=== PATIENT | male | born 2005 | race Caucasian/White ===

== ENCOUNTER 2024-02-21 08:00 | Inpatient (IN) ==
--- NOTE | 2024-02-21 08:56 | Emergency Department Note ---
Impression & Plan Generalized seizure ED Provider Note NAME: JUANJOSE DEXTER AGE: 18 SEX: M : 2005 ARRIVES VIA: Ambulance INFORMANT: Patient, ED PROVIDER(S): Brian Hines MD CHIEF COMPLAINT: Seizure HPI: This is a 18-year-old male with history of seizure on Keppra and Lamictal presenting for seizure. Patient was noted to have 3 seizures this morning and fell out of bed. 1 seizure was witnessed by EMS. He was given 2 L of Ativan IV with a seizure by EMS. Patient states he does not remember much he did states he felt unwell today. Constantly where he was, what happened. Does not member his last seizure, he thinks it may have been in October. Patient is currently postictal ROS: See above HPI for pertinent positives & negatives. A total of 10 systems reviewed and were otherwise negative. PHYSICAL EXAMINATION: General: resting comfortably in no acute distress Head: Normocephalic, mild swelling to the left forehead Eyes: Normal inspection, extraocular muscles intact Ear, nose, throat: Normal external exam Neck: Normal range of motion Respiratory: lungs clear to auscultation bilaterally Cardiovascular: Regular rate/rhythm, no murmur GI: soft, nontender, no guarding or rebound Extremities: nontender, moves all extremities Neuro: The patient awake and alert, somewhat confused but answers all questions appropriately, no focal deficits, symmetric faces Skin: Warm, dry, and intact MEDICAL DECISION MAKING: This is a 18-year-old male presenting for seizure. Patient is a known history of seizures last seizure was in October. Takes Keppra/Lamictal. Possibly had up to 3 seizures prior to arrival here. He is postictal at this time we will do head CT to rule out traumatic injury as he does have mild swelling to the left forehead. -CT imaging reveals no acute process. Patient observed for about 3+ hours at this time and is returned to his baseline. He appears to answer questioning appropriately at this time. Medically clear for discharge. -If short while later, parents did come from [place] and noted the patient was not at his usual baseline. Due to his postictal period lasting longer, will do blood work at this time and observe slightly longer. Will cancel discharge at this time. also they mention the patient has had vomiting throughout the course of the night and likely vomited up his medication was last night and did not take any medication this morning. Due to this we will give Keppra load as well as Lamictal p.o. -I was called to bedside as patient is having active seizure. Patient did have a seizure tonic-clonic like activity shortly after was last about 2 to 2-1/2 minutes. Dry heaving without vomiting. Maintaining airway at this time. Abated quickly after 2 mg of Ativan was administered IV. -The patient now has had approximately 4 seizures today. Patient will require admission for status epilepticus. -Currently resting comfortably, no longer having seizure-like activity is postictal but otherwise somewhat tachycardic. Differential diagnosis: Seizure, status epilepticus, intracranial hemorrhage ER treatment provided: See below Diagnostics interpreted by me: ECG: None Cardiac Monitoring: An order was placed for continuous cardiac monitoring. The monitor shows a rate of 116 with sinus rhythm. Laboratory studies: As stated above and show below. Imaging studies: See below. Critical Care Note: I have personally spent 30 minutes of critical care time in the direct management of this patient. This includes bedside care, interpretation of diagnostic studies, and testing, discussion with consultants, patient, and family members, and other required patient management activities. This 30 minutes is in excess of all separately billable procedures. Past Med/Surg History Social History Smoking Status: Never smoker Preferred Language: Arabic Feels Safe at Home: Yes Allergies Allergies Allergy/AdvReac Type Severity Reaction Status Date / Time No Known Allergies Allergy Verified 02/21/24 09:38 Home Meds Home Medications Medication Instructions Recorded Confirmed lamotrigine 100 mg tablet 250 mg PO QAM 09/02/22 02/21/24 (Lamictal) levetiracetam 500 mg tablet 1,000 mg PO QAM 09/02/22 02/21/24 (Keppra) lamotrigine 150 mg tablet 300 mg PO QPM 02/21/24 02/21/24 levetiracetam 500 mg tablet 1,500 mg PO QPM 02/21/24 02/21/24 methylphenidate HCl 36 mg 36 mg PO DAILY 02/21/24 02/21/24 tablet,extended release 24 hr Results & Data (ED) Vital Signs Vital Signs - 24 hr 02/21/24 08:10 02/21/24 08:12 02/21/24 08:15 Temperature 37.0 C Temperature Source Oral Pulse Rate 111 H 115 H 110 H Pulse Rate [Apical] Pulse Rate from SpO2 Sensor 115 H Pulse Rhythm Regular Pulse Rhythm [Apical] Pulse Strength Normal Pulse Strength [Apical] Respiratory Rate 17 20 Respiratory Effort / Characteristics Non-Labored Spontaneous Respiratory Depth Normal Respiratory Pattern Regular Blood Pressure 126/74 126/74 Blood Pressure [Right Arm] Blood Pressure Mean 91 91 Blood Pressure Mean [Right Arm] Blood Pressure Position Sitting Blood Pressure Position [Right Arm] Pulse Oximetry 97 95 Oxygen Delivery Method Room Air Room Air Sepsis Recent Fever Within 48 Hours No Sepsis New/Unexplained Change in Mental Status No Sepsis Action Taken by Nursing No Action Required End-Tidal CO2 02/21/24 08:20 02/21/24 08:20 02/21/24 08:30 Temperature 37.0 C Temperature Source Oral Pulse Rate 100 H Pulse Rate [Apical] 105 H Pulse Rate from SpO2 Sensor 100 H Pulse Rhythm Pulse Rhythm [Apical] Regular Pulse Strength Pulse Strength [Apical] Normal Respiratory Rate 17 19 Respiratory Effort / Characteristics Non-Labored Spontaneous Respiratory Depth Normal Respiratory Pattern Regular Blood Pressure 114/63 Blood Pressure [Right Arm] 126/74 Blood Pressure Mean 80 Blood Pressure Mean [Right Arm] 91 Blood Pressure Position Blood Pressure Position [Right Arm] Pulse Oximetry 93 93 93 Oxygen Delivery Method Room Air Room Air Room Air Sepsis Recent Fever Within 48 Hours Sepsis New/Unexplained Change in Mental Status Sepsis Action Taken by Nursing End-Tidal CO2 02/21/24 09:00 02/21/24 09:09 02/21/24 09:22 Temperature Temperature Source Pulse Rate 102 H 95 H Pulse Rate [Apical] Pulse Rate from SpO2 Sensor Pulse Rhythm Pulse Rhythm [Apical] Pulse Strength Pulse Strength [Apical] Respiratory Rate 19 Respiratory Effort / Characteristics Respiratory Depth Respiratory Pattern Blood Pressure 124/69 124/69 Blood Pressure [Right Arm] Blood Pressure Mean 87 94 Blood Pressure Mean [Right Arm] Blood Pressure Position Blood Pressure Position [Right Arm] Pulse Oximetry 94 Oxygen Delivery Method Room Air Sepsis Recent Fever Within 48 Hours Sepsis New/Unexplained Change in Mental Status Sepsis Action Taken by Nursing End-Tidal CO2 02/21/24 09:22 02/21/24 09:30 02/21/24 09:30 Temperature Temperature Source Pulse Rate 95 H 88 Pulse Rate [Apical] Pulse Rate from SpO2 Sensor Pulse Rhythm Pulse Rhythm [Apical] Pulse Strength Pulse Strength [Apical] Respiratory Rate 15 17 Respiratory Effort / Characteristics Respiratory Depth Respiratory Pattern Blood Pressure 119/71 Blood Pressure [Right Arm] Blood Pressure Mean 91 Blood Pressure Mean [Right Arm] Blood Pressure Position Blood Pressure Position [Right Arm] Pulse Oximetry Oxygen Delivery Method Sepsis Recent Fever Within 48 Hours Sepsis New/Unexplained Change in Mental Status Sepsis Action Taken by Nursing End-Tidal CO2 02/21/24 10:00 02/21/24 10:00 02/21/24 10:20 Temperature Temperature Source Pulse Rate 83 Pulse Rate [Apical] 97 H Pulse Rate from SpO2 Sensor Pulse Rhythm Pulse Rhythm [Apical] Regular Pulse Strength Pulse Strength [Apical] Normal Respiratory Rate 13 18 Respiratory Effort / Characteristics Non-Labored Spontaneous Respiratory Depth Normal Respiratory Pattern Regular Blood Pressure 124/63 Blood Pressure [Right Arm] 126/77 Blood Pressure Mean 87 Blood Pressure Mean [Right Arm] 93 Blood Pressure Position Blood Pressure Position [Right Arm] Pulse Oximetry 97 Oxygen Delivery Method Room Air Sepsis Recent Fever Within 48 Hours Sepsis New/Unexplained Change in Mental Status Sepsis Action Taken by Nursing End-Tidal CO2 02/21/24 10:30 02/21/24 10:30 02/21/24 10:39 Temperature Temperature Source Pulse Rate 99 H 95 H Pulse Rate [Apical] Pulse Rate from SpO2 Sensor Pulse Rhythm Pulse Rhythm [Apical] Pulse Strength Pulse Strength [Apical] Respiratory Rate 21 20 Respiratory Effort / Characteristics Respiratory Depth Respiratory Pattern Blood Pressure 127/86 Blood Pressure [Right Arm] Blood Pressure Mean 103 Blood Pressure Mean [Right Arm] Blood Pressure Position Blood Pressure Position [Right Arm] Pulse Oximetry Oxygen Delivery Method Sepsis Recent Fever Within 48 Hours Sepsis New/Unexplained Change in Mental Status Sepsis Action Taken by Nursing End-Tidal CO2 02/21/24 10:39 02/21/24 10:57 02/21/24 12:09 Temperature Temperature Source Pulse Rate 96 H Pulse Rate [Apical] Pulse Rate from SpO2 Sensor 145 H Pulse Rhythm Pulse Rhythm [Apical] Pulse Strength Pulse Strength [Apical] Respiratory Rate 18 Respiratory Effort / Characteristics Respiratory Depth Respiratory Pattern Blood Pressure 126/77 126/72 Blood Pressure [Right Arm] Blood Pressure Mean 94 Blood Pressure Mean [Right Arm] Blood Pressure Position Blood Pressure Position [Right Arm] Pulse Oximetry 98 89 L Oxygen Delivery Method Room Air Sepsis Recent Fever Within 48 Hours Sepsis New/Unexplained Change in Mental Status Sepsis Action Taken by Nursing End-Tidal CO2 02/21/24 12:10 02/21/24 12:10 02/21/24 12:15 Temperature Temperature Source Pulse Rate 128 H Pulse Rate [Apical] 133 H Pulse Rate from SpO2 Sensor 126 H Pulse Rhythm Pulse Rhythm [Apical] Regular Pulse Strength Pulse Strength [Apical] Normal Respiratory Rate 29 H 10 L Respiratory Effort / Characteristics Spontaneous Respiratory Depth Respiratory Pattern Blood Pressure 156/86 H Blood Pressure [Right Arm] 156/86 H Blood Pressure Mean 122 Blood Pressure Mean [Right Arm] 109 Blood Pressure Position Blood Pressure Position [Right Arm] Pulse Oximetry 93 92 Oxygen Delivery Method Room Air Sepsis Recent Fever Within 48 Hours Sepsis New/Unexplained Change in Mental Status Sepsis Action Taken by Nursing End-Tidal CO2 02/21/24 12:30 02/21/24 12:52 02/21/24 13:00 Temperature Temperature Source Pulse Rate 128 H 119 H Pulse Rate [Apical] 120 H Pulse Rate from SpO2 Sensor 128 H 120 H Pulse Rhythm Pulse Rhythm [Apical] Regular Pulse Strength Pulse Strength [Apical] Normal Respiratory Rate 27 H 18 24 Respiratory Effort / Characteristics Non-Labored Spontaneous Respiratory Depth Normal Respiratory Pattern Regular Blood Pressure Blood Pressure [Right Arm] 156/86 H Blood Pressure Mean Blood Pressure Mean [Right Arm] 109 Blood Pressure Position Blood Pressure Position [Right Arm] Pulse Oximetry 94 91 91 Oxygen Delivery Method Room Air Sepsis Recent Fever Within 48 Hours Sepsis New/Unexplained Change in Mental Status Sepsis Action Taken by Nursing End-Tidal CO2 37 02/21/24 13:02 02/21/24 13:30 02/21/24 13:52 Temperature Temperature Source Pulse Rate 126 H 130 H Pulse Rate [Apical] 112 H Pulse Rate from SpO2 Sensor 128 H Pulse Rhythm Pulse Rhythm [Apical] Regular Pulse Strength Pulse Strength [Apical] Normal Respiratory Rate 4 L 18 Respiratory Effort / Characteristics Non-Labored Spontaneous Respiratory Depth Normal Respiratory Pattern Regular Blood Pressure Blood Pressure [Right Arm] 156/86 H Blood Pressure Mean Blood Pressure Mean [Right Arm] 109 Blood Pressure Position Blood Pressure Position [Right Arm] Lying Pulse Oximetry 94 95 Oxygen Delivery Method Room Air Sepsis Recent Fever Within 48 Hours Sepsis New/Unexplained Change in Mental Status Sepsis Action Taken by Nursing End-Tidal CO2 26 02/21/24 15:00 Temperature Temperature Source Pulse Rate Pulse Rate [Apical] 116 H Pulse Rate from SpO2 Sensor Pulse Rhythm Pulse Rhythm [Apical] Regular Pulse Strength Pulse Strength [Apical] Normal Respiratory Rate 18 Respiratory Effort / Characteristics Non-Labored Spontaneous Respiratory Depth Normal Respiratory Pattern Regular Blood Pressure Blood Pressure [Right Arm] 156/86 H Blood Pressure Mean Blood Pressure Mean [Right Arm] 109 Blood Pressure Position Blood Pressure Position [Right Arm] Pulse Oximetry 95 Oxygen Delivery Method Room Air Sepsis Recent Fever Within 48 Hours Sepsis New/Unexplained Change in Mental Status Sepsis Action Taken by Nursing End-Tidal CO2 Laboratory Data 02/21/24 08:06 02/21/24 08:06 Lab Results 02/21/24 02/21/24 02/21/24 Range/Units 08:06 12:01 12:12 WBC 9.00 (4.8-10.8) K/ul RBC 5.14 (4.70-6.10) M/uL Hgb 15.8 (14.0-18.0) g/dl Hct 47.4 (42.0-52.0) % MCV 92.2 (80.0-100.0) fL MCH 30.7 (25.0-34.0) pg MCHC 33.3 (32.0-36.0) g/dL RDW Std Deviation 38.6 (36.4-46.3) fL RDW Coeff of Caroline 11.4 L (11.5-14.5) % Plt Count 254 (130-400) K/uL MPV 10.3 (9.4-12.4) fL Immature Gran % (Auto) 0.2 % Neut % (Auto) 92.8 % Lymph % (Auto) 2.1 % [place] % (Auto) 4.4 % Eos % (Auto) 0.2 % Baso % (Auto) 0.3 % Neut # (Auto) 8.34 H (1.40-6.50) K/uL Lymph # (Auto) 0.19 L (1.20-3.40) K/uL [place] # (Auto) 0.40 (0.11-0.59) K/uL Eos # (Auto) 0.02 (0.00-0.50) K/uL Baso # (Auto) 0.03 (0.00-0.20) K/uL Immature Gran # (Auto) 0.02 (0.01-0.20) K/uL Echinocytes 1+ Sodium 139 (136-145) mmol/L Potassium 3.8 (3.5-5.1) mmol/L Chloride 102 (98-107) mmol/L Carbon Dioxide 21 (21-32) mmol/L Anion Gap 16 H (3-11) BUN 21 (6-23) mg/dl Creatinine 1.09 (0.6-1.4) mg/dl Est Cr Clr Drug Dosing 100.6 ml/min Est GFR ( Amer) 112.6 ml/min Est GFR (Non-Af Amer) 97.2 ml/min BUN/Creatinine Ratio 19.3 (10-20) Glucose 145 H (70-99(Fasting)) mg/dl Calcium 9.7 (8.6-10.3) mg/dl Magnesium 2.0 (1.7-2.4) mg/dl Total Creatine Kinase 249 H (30-223) U/L SARS-CoV-2 (PCR) NEGATIVE (Negative) Influenza Type A (PCR) Negative (Neg) Influenza Type B (PCR) Negative (Neg) RSV (RT-PCR) Negative (Neg) Administered Medications Lactated Ringer's (Lr) 1,000 mls @ 125 mls/hr IV .Q8H [facility] Stop: 02/22/24 13:59 Last Admin: 02/21/24 14:12 Dose: 125 mls/hr Documented By: VENKATESH Discontinued Medications Famotidine (Pepcid 20mg Iv Push) 20 mg in 5 mls @ 2.5 mls/min IV NOW STA Stop: 02/21/24 14:21 Last Admin: 02/21/24 14:33 Dose: 2.5 mls/min Documented By: SUGAR Lamotrigine (Lamotrigine 100 Mg Tab) 200 mg PO BID STA; Protocol Stop: 02/21/24 11:57 Last Admin: 02/21/24 13:03 Dose: Not Given Documented By: SUGAR Levetiracetam (Levetiracetam 500 Mg/5 Ml Vial) 2,650 mg 40 mg/kg (2650 mg) IV NOW STA Stop: 02/21/24 11:57 Last Admin: 02/21/24 12:20 Dose: 2,650 mg Documented By: GIOVANNA Lorazepam (Lorazepam 1 Mg/1 Ml Syr Ed Inj Use) Confirm Administered Dose 2 mg .ROUTE .STK-MED ONE Stop: 02/21/24 12:08 Last Admin: 02/21/24 12:19 Dose: 2 mg Documented By: GIOVANNA Ondansetron HCl (Ondansetron Inj 2 Mg/Ml 2 Ml Vial) 4 mg IV NOW STA Stop: 02/21/24 13:57 Last Admin: 02/21/24 14:21 Dose: Not Given Documented By: CC Imaging Data Radiologist's Impression: Head CT 02/21/24 08:25 CT OF THE HEAD WITHOUT CONTRAST CLINICAL HISTORY: Seizure w/ head trauma (L) COMPARISON STUDY: No previous studies for comparison. CT DOSE: 1250.21 mGy.cm TECHNIQUE: Helical axial images of the head were obtained without IV contrast. Automated exposure control was utilized for the study. A dose lowering technique was utilized adhering to the principles of ALARA. FINDINGS: This study is mildly compromised by motion artifact. No acute intracranial hemorrhage, midline shift or mass effect is present. The ventricular system is unremarkable. The basal cisterns are patent. No extra- axial collections are present. There are no findings to suggest acute dural sinus thrombosis or acute territorial infarct. No significant calvarial abnormalities are present. Visualized portions of the sinuses and mastoid air cells are clear. IMPRESSION: 1. No acute intracranial findings. Exam mildly compromised by motion artifact. 2. No calvarial fractures. ACT 112: Negative or not required by law. Electronically signed by: Dipesh Aguilar M.D. 02/21/2024 9:17 AM Chest X-Ray 02/21/24 12:57 XR chest 1V portable HISTORY: Vomiting ?pneumonia COMPARISON: Chest 09/02/2022. FINDINGS: The lungs are clear. Cardiac silhouette is normal in size. No pleural effusions. No pneumothorax. IMPRESSION: No acute process. ACT 112: Negative or not required by law. Electronically signed by: Dre Feliz M.D. 02/21/2024 1:20 PM Discharge Plan Visit Data Chief Complaint: Seizure Stated Complaint: SEIZURE ED Provider: Brian Hines Discharge Problem: Generalized seizure Patient Disposition: Home - Self-Care Discharge Instructions Krames/Other Patient Handouts: ED [facility] Seizure Activity Restrictions/Additional Instructions: You were seen for your seizure. At this time you are well without having any seizures here. Please follow-up with your neurologist for any medication changes. Come back for any repeat seizures, nausea, vomiting. Your CT head today was negative. Interventions: ED Discharge Assessment Last Done: 02/21/24 10:57 Forms Stand Alone Forms: My [facility], Important Visit Information Prescriptions Prescriptions: No Action lamotrigine [Lamictal] 100 mg Tablet 250 mg PO QAM levetiracetam [Keppra] 500 mg Tablet 1,000 mg PO QAM lamotrigine 150 mg tablet 300 mg PO QPM levetiracetam 500 mg tablet 1,500 mg PO QPM methylphenidate HCl 36 mg tablet extended release 24hr 36 mg PO DAILY Referrals Referrals: [facility] [Primary Care Provider] -
--- NOTE | 2024-02-21 09:19 | CT Scan Report ---
CT OF THE HEAD WITHOUT CONTRAST CLINICAL HISTORY: Seizure w/ head trauma (L) COMPARISON STUDY: No previous studies for comparison. CT DOSE: 1250.21 mGy.cm TECHNIQUE: Helical axial images of the head were obtained without IV contrast. Automated exposure con trol was utilized for the study. A dose lowering technique was utilized adhering to the principles o f ALARA. FINDINGS: This study is mildly compromised by motion artifact. No acute intracranial hemorrhage, midl ine shift or mass effect is present. The ventricular system is unremarkable. The basal cisterns are p atent. No extra-axial collections are present. There are no findings to suggest acute dural sinus thr ombosis or acute territorial infarct. No significant calvarial abnormalities are present. Visualized portions of the sinuses and mastoid air cells are clear. IMPRESSION: 1. No acute intracranial findings. Exam mildly compromised by motion artifact. 2. No calvarial fractures. ACT 112: Negative or not required by law. Electronically signed by: Dipesh Aguilar M.D. 02/21/2024 9:17 AM
[2024-02-21] MEDS: LORazepam 1 MG/1 ML SYR ED Inj Use ONE (12:19)
[2024-02-21 12:20] LABS: Hematocrit (blood only) 47.4 % (42.0-52.0); Hemoglobin 15.8 g/dl (14.0-18.0); Mean Corpuscular Hemoglobin 30.7 pg (25.0-34.0); Mean Corpuscular Hgb Conc 33.3 g/dL (32.0-36.0); Mean Corpuscular Volume 92.2 fL (80.0-100.0); Mean Platelet Volume 10.3 fL (9.4-12.4); Platelet Count 254 K/uL (130-400); RDW Coefficient of Variation 11.4 % (11.5-14.5); RDW Standard Deviation 38.6 fL (36.4-46.3); Red Blood Count 5.14 M/uL (4.70-6.10)
[2024-02-21] MEDS: levETIRAcetam 500 MG/5 ML VIAL IV STA (12:20)
[2024-02-21 12:27] LABS: Calcium 9.7 mg/dl (8.6-10.3); Potassium 3.8 mmol/L (3.5-5.1)
[2024-02-21 12:33] LABS: BUN Creatinine Ratio 19.3 (10-20); Creatinine Clr Calc Pharmacy 100.6 ml/min; Est GFR (African American) 112.6 ml/min; Est GFR (Non-African American) 97.2 ml/min
[2024-02-21 12:47] LABS: Basophils # (auto) 0.03 K/uL (0.00-0.20); Basophils % (auto) 0.3 %; Echinocytes 1+; Eosinophils # (auto) 0.02 K/uL (0.00-0.50); Eosinophils % (auto) 0.2 %; Immature Granulocytes # (auto) 0.02 K/uL (0.01-0.20); Immature Granulocytes % (auto) 0.2 %; Lymphocytes # (auto) 0.19 K/uL (1.20-3.40); Lymphocytes % (auto) 2.1 %; Monocytes % (auto) 4.4 %; Neutrophils # (auto) 8.34 K/uL (1.40-6.50); Neutrophils % (auto) 92.8 %
[2024-02-21] MEDS: lamoTRIgine 100 MG TAB PO STA (13:03)
--- NOTE | 2024-02-21 13:21 | XRay Report ---
XR chest 1V portable HISTORY: Vomiting ?pneumonia COMPARISON: Chest 09/02/2022. FINDINGS: The lungs are clear. Cardiac silhouette is normal in size. No pleural effusions. No pneumot horax. IMPRESSION: No acute process. ACT 112: Negative or not required by law. Electronically signed by: Dre Feliz M.D. 02/21/2024 1:20 PM
--- NOTE | 2024-02-21 13:22 | History & Physical Report ---
Date of Service February 21, 2024 Assessment & Plan (1) Generalized seizure: Plan: Generalized tonic-clonic seizures x 4 on the morning of 02/20 Hx of seizures Patient was reportedly vomiting last night and could not keep down his regular seizure medications Anion gap elevated at 16 Lamotrigine/Keppra levels ordered, pending UA/Urine drug screen ordered, pending CPK ordered, pending Keppra 2560 mg IV given in the ED Ativan 2 mg IV q5m x 3 max doses as needed for recurrence of acute active seizures Seizure precautions Neurochecks q4h Neurology consulted Will hold p.o. medications for now Keppra 1000 mg IV BID Depacon 500mg IV loading dose, then 250mg IV BID Ween off lamictal; starting 02/21 will do lamictal 200mg p.o. x 1 week A.m. 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 for now and advance diet as tolerated VTE PPx: SCDs History of Present Illness Chief Complaint: Seizures Primary Care Provider: [facility] Bert is a 18-year-old male with PMH of NYDIA. He presented on 02/20 for seizure-like activity x 4. Hx of seizures. Patient reports that he was vomiting last night, and threw up his regular seizure medications. He then proceeded to have 3 seizures this morning prior to ED arrival; one of the seizu res was witnessed by EMS, and he was given Ativan 2 mg IV en route. Patient's parents are at the bedside and provides most of the history, as the patient is currently postictal, lethargic. Per mother, patient's first seizure was at age [age] years old; juvenile onset epilepsy. Patient follows with Dr. Solo (Neurology) in [place], [place]. He takes the Lamictal for absence seizures. Normally takes Lamictal and Keppra twice daily. Last seizure prior to today was at the end of October; parents are unsure of the precipitating factors, but report that he woke up around 11 PM and had a 1 minute seizure witnessed by his roommate; postictal state. Per information provided by the patient's roommate today, the patient started vomiting last night and threw up all of his regular seizure medications. He then had his first seizure around 5:50 AM for 1 minute, fell out of bed and hit his left forehead. The patient became responsive shortly after his first seizure, but then vomited at approximately 6:30 AM, and had a second seizure lasting approximately 1 minute around 6:50 AM. Both seizures were witnessed by patient's roommate. No tongue biting or loss of urinary continence, per parents. No prior history of status epilepticus. Patient is currently postictal and unable to provide a history/ROS. However, patient's parents do not believe he smokes or uses recreational medications; endorse occasional alcohol use. Patient's father is allergic to Zofran (breaks out in hives), and while they are unsure if the patient has ever had Zofran in the past, they would prefer to avoid this medication while he is hospitalized. Patient is hypertensive at 156/86, and tachycardic at 126 bpm at time of admission. ED course: Keppra 2650 mg IV Lorazepam 2 mg IV Unable to obtain ROS given patient's current state; however, patient does endorse that he was feverish and vomiting the night prior. He is not able to recall this morning's events. Oriented to name//month, not location. Allergies Allergy/AdvReac Type Severity Reaction Status Date / Time No Known Allergies Allergy Verified 02/21/24 09:38 Home Medications Medication Instructions Recorded Confirmed Type lamotrigine 100 mg tablet 250 mg PO QAM 09/02/22 02/21/24 History (Lamictal) levetiracetam 500 mg tablet 1,000 mg PO QAM 09/02/22 02/21/24 History (Keppra) lamotrigine 150 mg tablet 300 mg PO QPM 02/21/24 02/21/24 History levetiracetam 500 mg tablet 1,500 mg PO QPM 02/21/24 02/21/24 History methylphenidate HCl 36 mg 36 mg PO DAILY 02/21/24 02/21/24 History tablet,extended release 24 hr Past Med/Surg History Medical History (Updated 02/21/24 @ 16:20 by Adolfo Ovalle MD) NYDIA (juvenile myoclonic epilepsy) Social History Smoking Status: Never smoker Hx Alcohol Use: No Hx Substance Use: No Preferred Language: Kinyarwanda Communication Ability: Effective 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 Beliefs That Will Affect Care: None Current Living Situation: Other Current Living Situation Comment: [facility] Feels Safe at Home: Yes Review of Systems Review of Systems: See HPI above Physical Exam Physical Exam: General: no acute distress; sedated; lethargic; non-toxic appearing; well- nourished; cooperative; 95% SpO2 on RA HEENT: Superficial rash/abrasion on the left upper forehead into the scalp; no scleral icterus; PERRLA; moist mucus membrane; unable to assess vision and hearing Neck: supple; no lymphadenopathy; trachea midline Skin: warm, dry without signs of tenting; no cyanosis; no rashes, bruising, lesions, or erythema noted CV: chest wall NTP; RR, tachycardic around 112 bpm; S1/S2 normal; no murmurs/rubs/gallops; pulses intact and symmetric at radial, DP, and PT Lungs: no acute respiratory distress; symmetrical chest wall expansion; clear breath sounds across all lung valle w/o adventitious sounds; no wheezing ABD: Soft, NTP; BS present; no rebound/guarding; no distention MSK: no tics or fasciculations; no edema noted in the LEs b/l, nonerythematous Neuro: Patient is oriented to name//month, but not location; sedated; res ponds to some commands such as wiggling toes; minimally responsive to questioning, and is unable to provide a reason for why he is currently in the hospital; flat mood and affect; unable to assess sensation Results & Data Results & Data Vital Signs (Past 12 Hours) Vital Signs Temp Pulse Pulse Resp BP BP Pulse Ox 02/21/24 13:02 126 H 02/21/24 12:52 120 H 18 156/86 H 91 02/21/24 12:15 133 H 10 L 156/86 H 92 02/21/24 10:57 96 H 18 126/72 98 02/21/24 10:20 97 H 18 126/77 97 02/21/24 09:09 95 H 02/21/24 09:00 102 H 19 124/69 94 02/21/24 08:30 100 H 19 114/63 93 02/21/24 08:20 93 02/21/24 08:20 37.0 C 105 H 17 126/74 93 02/21/24 08:15 110 H 02/21/24 08:12 115 H 20 126/74 95 02/21/24 08:10 37.0 C 111 H 17 126/74 97 O2 Del Method 02/21/24 13:02 02/21/24 12:52 Room Air 02/21/24 12:15 Room Air 02/21/24 10:57 Room Air 02/21/24 10:20 Room Air 02/21/24 09:09 02/21/24 09:00 Room Air 02/21/24 08:30 Room Air 02/21/24 08:20 Room Air 02/21/24 08:20 Room Air 02/21/24 08:15 02/21/24 08:12 Room Air 02/21/24 08:10 Room Air Laboratory Results Abnormal lab results 02/21/24 Range/Units 08:06 RDW Coeff of Caroline 11.4 L (11.5-14.5) % Neut # (Auto) 8.34 H (1.40-6.50) K/uL Lymph # (Auto) 0.19 L (1.20-3.40) K/uL Anion Gap 16 H (3-11) Glucose 145 H (70-99(Fasting)) mg/dl Diagnostic Findings Head CT 02/21/24 08:25 CT OF THE HEAD WITHOUT CONTRAST CLINICAL HISTORY: Seizure w/ head trauma (L) COMPARISON STUDY: No previous studies for comparison. CT DOSE: 1250.21 mGy.cm TECHNIQUE: Helical axial images of the head were obtained without IV contrast. Automated exposure control was utilized for the study. A dose lowering technique was utilized adhering to the principles of ALARA. FINDINGS: This study is mildly compromised by motion artifact. No acute intracranial hemorrhage, midline shift or mass effect is present. The ventricular system is unremarkable. The basal cisterns are patent. No extra- axial collections are present. There are no findings to suggest acute dural sinus thrombosis or acute territorial infarct. No significant calvarial abnormalities are present. Visualized portions of the sinuses and mastoid air cells are clear. IMPRESSION: 1. No acute intracranial findings. Exam mildly compromised by motion artifact. 2. No calvarial fractures. ACT 112: Negative or not required by law. Electronically signed by: Dipesh Aguilar M.D. 02/21/2024 9:17 AM Chest X-Ray 02/21/24 12:57 XR chest 1V portable HISTORY: Vomiting ?pneumonia COMPARISON: Chest 09/02/2022. FINDINGS: The lungs are clear. Cardiac silhouette is normal in size. No pleural effusions. No pneumothorax. IMPRESSION: No acute process. ACT 112: Negative or not required by law. Electronically signed by: Dre Feliz M.D. 02/21/2024 1:20 PM ECG Additional Comments: EKG revealed sinus tachycardia at 113 bpm; QTc 438 Code Status & VTE Plan Code Status Full code (discussed with the patient's parents at bedside as he does not currently exhibit capacity due to sedation at this time) VTE Prophylaxis Plan VTE Prophylaxis will be ordered: Yes PG Care Time/CCT Total # of Minutes Spent Total Time Spent with Patient: Total time spent is greater than 50% in coordination of care (as documented) at patient's floor/unit and/or counseling patient: [place] [address] INT INP/OBS CARE 3/75MIN Patient Type New History Comprehensive Exam Comprehensive Medical Decision Making High Complexity Diagnoses Generalized seizure R56.9 Nausea & vomiting R11.2 Sinus tachycardia R00.0 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
[2024-02-21] MEDS: LACTATED RINGER'S 1,000 ML IV SCH (14:12)
[2024-02-21] MEDS: ONDANSETRON INJ 2 MG/ML 2 ML VIAL IV STA (14:21)
[2024-02-21] MEDS: FAMOTIDINE 20MG IV PUSH 20 MG/5 ML SYR IV STA (14:33)
[2024-02-21 14:59] LABS: Influenza A virus by PCR Negative (Neg); Influenza B virus by PCR Negative (Neg); RSV by PCR Negative (Neg); SARS CoV2 RNA(COVID-19) Ceph NEGATIVE (Negative)
[2024-02-21] MEDS: LACTATED RINGER'S 1,000 ML IV ONE (15:00)
--- NOTE | 2024-02-21 16:20 | Neurology Consultation ---
Date of Consultation February 21, 2024 Assessment & Plan (1) NYDIA (juvenile myoclonic epilepsy): History of Present Illness History of Present Illness pt sleepy but does wake up briefly with eyes opening and moaning and moving all extremities. parent at bedside. pt with confirmd dx of NYDIA since childhood (based on the chart pt's mom showed me). has been on lamictal from the beginning and keppra added few years ago. pt with 1-2x/year breathru seizures. pt s/p ativan and IV keppra loading today. no fever. admission HpI: Bert is a 18-year-old male with PMH of generalized seizures. He presented on 02/20 for seizure-like activity x 4. Hx of seizures. Patient reports that he was vomiting last night, and threw up his regular seizure medications. He then proceeded to have 3 seizures this morning prior to ED arrival; one of the seizures was witnessed by EMS, and he was given Ativan 2 mg IV en route. Patient's parents are at the bedside and provides most of the history, as the patient is currently postictal, lethargic. Per mother, amilcar lim's first seizure was at age [age] years old; juvenile onset epilepsy. Patient follows with Dr. Solo (Neurology) in [place], [place]. He takes the Lamictal for absence seizures. Normally takes Lamictal and Keppra twice daily. Last seizure prior to today was at the end of October; parents are unsure of the precipitating factors, but report that he woke up around 11 PM and had a 1 minute seizure witnessed by his roommate; postictal state. Per information provided by the patient's roommate today, the patient started vomiting last night and threw up all of his regular seizure medications. He then had his first seizure around 5:50 AM for 1 minute, fell out of bed and hit his left forehead. The patient became responsive shortly after his first seizure, but then vomited at approximately 6:30 AM, and had a second seizure lasting approximately 1 minute around 6:50 AM. Both seizures were witnessed by patient's roommate. No tongue biting or loss of urinary continence, per parents. No prior history of status epilepticus. Patient is currently postictal and unable to provide a history/ROS. However, patient's parents do not believe he smokes or uses recreational medications; endorse occasional alcohol use. Patient's father is allergic to Zofran (breaks out in hives), and while they are unsure if the patient has ever had Zofran in the past, they would prefer to avoid this medication while he is hospitalized. Patient is hypertensive at 156/86, and tachycardic at 126 bpm at time of admission. ED course: Keppra 2650 mg IV Lorazepam 2 mg IV Allergies Allergy/AdvReac Type Severity Reaction Status Date / Time No Known Allergies Allergy Verified 02/21/24 09:38 Home Medications Medication Instructions Recorded Confirmed Type lamotrigine 100 mg tablet 250 mg PO QAM 09/02/22 02/21/24 History (Lamictal) levetiracetam 500 mg tablet 1,000 mg PO QAM 09/02/22 02/21/24 History (Keppra) lamotrigine 150 mg tablet 300 mg PO QPM 02/21/24 02/21/24 History levetiracetam 500 mg tablet 1,500 mg PO QPM 02/21/24 02/21/24 History methylphenidate HCl 36 mg 36 mg PO DAILY 02/21/24 02/21/24 History tablet,extended release 24 hr Patient History Medical History (Updated 02/21/24 @ 16:20 by Adolfo Ovalle MD) NYDIA (juvenile myoclonic epilepsy) Social History Smoking Status: Never smoker Preferred Language: Ethiopian Feels Safe at Home: Yes Exam (Neuro) Physical Exam: HEENT: normocephalic Neuro: Mental: drowsy and sleeping comfortably. does open his eyes and moans and moves his limbs with purposeful movements. CN: PERRL, , symmetric face, grossly intact Motor: No abnormal movements, normal tone and bulk, moves all limbs purposefully well. Coord:deferred Impression: 18 yo male with known dx of NYDIA who presented with breakthrough GTC events. s/p ativan and loading dose IV keppra. Pt not in status epilepticus currently. Recommendations: -continue keppra 1000mg IV bid will start depacon 500mg IV loading, then 250mg IV bid standing dose. wean off lamictal starting tomorrow when pt is awake and able to take his lamictal. staring tomorrow, Lamictal 200mg po BID for a week and plan to wean off. no need for EEG at this point unless pt has more seizure events. hydration and close monitoring for further seizure events. IV fluid hydration. f/u on labs and UDx also. will see him again tomorrow morning. discussed with parents in details about the plan. discussed with ED provider also. seizure precaution. Chart reviewed I have spent more than 50% educating patient about potential diagnosis and neurological evaluation and coordinating care with patient's treatment team. Total time spent (including chart review and coordination of care): 60 min (this includes chart review). Results & Data Vital Signs (Past 12 Hours) Vital Signs Temp Pulse Pulse Resp BP BP Pulse Ox 02/21/24 15:00 116 H 18 156/86 H 95 02/21/24 13:52 112 H 18 156/86 H 95 02/21/24 13:30 130 H 4 L 94 02/21/24 13:02 126 H 02/21/24 13:00 119 H 24 91 02/21/24 12:52 120 H 18 156/86 H 91 02/21/24 12:30 128 H 27 H 94 02/21/24 12:15 133 H 10 L 156/86 H 92 02/21/24 12:10 128 H 29 H 93 02/21/24 12:10 156/86 H 02/21/24 12:09 89 L 02/21/24 10:57 96 H 18 126/72 98 02/21/24 10:39 126/77 02/21/24 10:39 95 H 20 02/21/24 10:30 127/86 02/21/24 10:30 99 H 21 02/21/24 10:20 97 H 18 126/77 97 02/21/24 10:00 124/63 02/21/24 10:00 83 13 02/21/24 09:30 88 17 02/21/24 09:30 119/71 02/21/24 09:22 95 H 15 02/21/24 09:22 124/69 02/21/24 09:09 95 H 02/21/24 09:00 102 H 19 124/69 94 02/21/24 08:30 100 H 19 114/63 93 02/21/24 08:20 93 02/21/24 08:20 37.0 C 105 H 17 126/74 93 02/21/24 08:15 110 H 02/21/24 08:12 115 H 20 126/74 95 02/21/24 08:10 37.0 C 111 H 17 126/74 97 O2 Del Method 02/21/24 15:00 Room Air 02/21/24 13:52 Room Air 02/21/24 13:30 02/21/24 13:02 02/21/24 13:00 02/21/24 12:52 Room Air 02/21/24 12:30 02/21/24 12:15 Room Air 02/21/24 12:10 02/21/24 12:10 02/21/24 12:09 02/21/24 10:57 Room Air 02/21/24 10:39 02/21/24 10:39 02/21/24 10:30 02/21/24 10:30 02/21/24 10:20 Room Air 02/21/24 10:00 02/21/24 10:00 02/21/24 09:30 02/21/24 09:30 02/21/24 09:22 02/21/24 09:22 02/21/24 09:09 02/21/24 09:00 Room Air 02/21/24 08:30 Room Air 02/21/24 08:20 Room Air 02/21/24 08:20 Room Air 02/21/24 08:15 02/21/24 08:12 Room Air 02/21/24 08:10 Room Air PG Care Time/CCT Total # of Minutes Spent Total Time Spent with Patient: Total time spent is greater than 50% in coordination of care (as documented) at patient's floor/unit and/or counseling patient: Coding Level of Care Code 90816 IN/OBS CONSULT LVL 4,60M Diagnoses 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
[2024-02-21] MEDS: VALPROATE SOD 500 MG in DEXTROSE 5% 50 ML IV ONE (16:51)
[2024-02-21] MEDS ORDERED: LORazepam 2 MG in SYRINGE 1 ML IV PRN (17:06)
[2024-02-21 19:07] LABS: Appearance Urine Clear (Clear); Bacteria Urine Automated None Seen (None Seen); Bilirubin Urine Negative (Negative); Blood Urine Negative (Negative); Cast Urine Automated 0-2 /lpf (0-2); Color Urine Yellow; Epithelial Cell Urine Auto 0-2 /hpf (0-2); Glucose Urine UA Negative (Negative); Ketones Urine 3+ (Negative); Leukocyte Esterase Urine Negative (Negative); Nitrite Urine Negative (Negative); Protein Urine 1+ (Negative); RBC Urine Automated 0-2 /hpf (0-2); Specific Gravity Urine 1.035 (1.000-1.030); Urobilinogen Urine Negative (Negative); WBC Urine Automated 0-5 /hpf (0-5)
[2024-02-21 19:36] LABS: Amphetamines+Metham, Urine Neg (Neg); Barbiturates, Urine Neg (Neg); Benzodiazepine, Urine Pos (Neg); Cocaine, Urine Neg (Neg); MDMA (Ecstacy), Urine Neg (Neg); Marijuana, Urine Neg (Neg); Methadone, Urine Neg (Neg); Opiate, Urine Neg (Neg); Phencyclidine, Urine Neg (Neg)
[2024-02-21] MEDS: levETIRAcetam IV 1,000 MG in 0.9 % SODIUM CHLORIDE 100 ML IV SCH (21:08)
[2024-02-21] MEDS: ACETAMINOPHEN 1,000 MG/100 ML VIAL IV STA (21:58)
[2024-02-21] MEDS: VALPROATE SOD 250 MG in DEXTROSE 5% 50 ML IV SCH (22:19)
[2024-02-22] MEDS: METHYLPHENIDATE SCH (00:09)
[2024-02-22] MEDS ORDERED: ACETAMINOPHEN 1,000 MG/100 ML VIAL IV PRN (05:30)
[2024-02-22 06:35] LABS: Basophils # (auto) 0.02 K/uL (0.00-0.20); Basophils % (auto) 0.4 %; Eosinophils # (auto) 0.14 K/uL (0.00-0.50); Eosinophils % (auto) 2.9 %; Hemoglobin 13.7 g/dl (14.0-18.0); Immature Granulocytes # (auto) 0.01 K/uL (0.01-0.20); Immature Granulocytes % (auto) 0.2 %; Lymphocytes % (auto) 12.5 %; Mean Corpuscular Hemoglobin 30.8 pg (25.0-34.0); Mean Corpuscular Hgb Conc 34.3 g/dL (32.0-36.0); Mean Corpuscular Volume 89.9 fL (80.0-100.0); Mean Platelet Volume 9.7 fL (9.4-12.4); Monocytes # (auto) 0.59 K/uL (0.11-0.59); Monocytes % (auto) 12.3 %; Neutrophils # (auto) 3.44 K/uL (1.40-6.50); Neutrophils % (auto) 71.7 %; Platelet Count 182 K/uL (130-400); RDW Coefficient of Variation 11.5 % (11.5-14.5); RDW Standard Deviation 37.6 fL (36.4-46.3); Red Blood Count 4.45 M/uL (4.70-6.10)
[2024-02-22 07:04] LABS: Albumin Level 4.1 gm/dl (3.4-5.0); BUN Creatinine Ratio 19.5 (10-20); Calcium 9.1 mg/dl (8.6-10.3); Creatinine Clr Calc Pharmacy 126.1 ml/min; Est GFR (Non-African American) 124.2 ml/min; Potassium 3.8 mmol/L (3.5-5.1); Total Protein 6.1 gm/dl (6.0-8.3)
[2024-02-22] MEDS: lamoTRIgine 100 MG TAB PO SCH (08:29)
--- NOTE | 2024-02-22 08:58 | Neurology Consultation ---
Date of Consultation February 22, 2024 Assessment & Plan (1) NYDIA (juvenile myoclonic epilepsy): History of Present Illness Attending Physician: Jacinto Snell DO History of Present Illness pt doing well. no events. pt feels good and want to go home. had video conference with his neurology back home. he has been doing well on the lamictal and keppra. there is confusion as to if he was on depakote. he states he was never on depakote. Allergies Allergy/AdvReac Type Severity Reaction Status Date / Time No Known Allergies Allergy Verified 02/21/24 09:38 Home Medications Medication Instructions Recorded Confirmed Type lamotrigine 100 mg tablet 250 mg PO QAM 09/02/22 02/21/24 History (Lamictal) levetiracetam 500 mg tablet 1,000 mg PO QAM 09/02/22 02/21/24 History (Keppra) lamotrigine 150 mg tablet 300 mg PO QPM 02/21/24 02/21/24 History levetiracetam 500 mg tablet 1,500 mg PO QPM 02/21/24 02/21/24 History methylphenidate HCl 36 mg 36 mg PO DAILY 02/21/24 02/21/24 History tablet,extended release 24 hr Patient History Medical History (Updated 02/21/24 @ 16:20 by Adolfo Ovalle MD) NYDIA (juvenile myoclonic epilepsy) Social History Smoking Status: Never smoker Hx Alcohol Use: No Hx Substance Use: No Preferred Language: Serbian Communication Ability: Effective Flight Radio Operator Required: No Beliefs That Will Affect Care: None Current Living Situation: Other Current Living Situation Comment: [facility] Feels Safe at Home: Yes Exam (Neuro) Physical Exam: Neuro: Mental: AOx4, fluent speech, normal comprehension, no apraxia, no L/R confusion, no neglect CN:, Full EOM, symmetric face, Motor: No abnormal movements Coord: intact Impression: 18 yo male with NYDIA hx, currently doing well. pt likely had breakthrough seizure from acute GI disorder and missing his pills due to vomiting. pt doing well currently. Recommendations: Ok for discharge today. continue keppra 1000mg PO AM and 2000mg PO PM (same as outpt dose) discharge pt with depakote 500mg ER po qhs lower dose lamictal 200mg po bid he is going to set up f/u with his home neurologist upon discharge next week discusse with pt and parent about above changes. Chart reviewed I have spent more than 50% educating patient about potential diagnosis and neurological evaluation and coordinating care with patient's treatment team. Total time spent (including chart review and coordination of care): 45 min (this includes chart review). 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
[2024-02-22] MEDS ORDERED: PROCHLORPERAZINE 5 MG in SYRINGE 4 ML IV PRN (10:14)
--- NOTE | 2024-02-22 10:39 | Discharge Summary ---
Date of Service February 22, 2024 Admission HPI Per Admitting Provider Bert is a 18-year-old male with PMH of NYDIA. He presented on 02/20 for seizure-like activity x 4. Hx of seizures. Patient reports that he was vomiting last night, and threw up his regular seizure medications. He then proceeded to have 3 seizures this morning prior to ED arrival; one of the seizures was witnessed by EMS, and he was given Ativan 2 mg IV en route. Patient's parents are at the bedside and provides most of the history, as the patient is currently postictal, lethargic. Per mother, patient's first seizure was at age [age] years old; juvenile onset epilepsy. Patient follows with Dr. Solo (Neurology) in [place]. He takes the Lamictal for absence seizures. Normally takes Lamictal and Keppra twice daily. Last seizure prior to today was at the end of October; parents are unsure of the precipitating factors, but report that he woke up around 11 PM and had a 1 minute seizure witnessed by his roommate; postictal state. Per information provided by the patient's roommate today, the patient started vomiting last night and threw up all of his regular seizure medications. He then had his first seizure around 5:50 AM for 1 minute, fell out of bed and hit his left forehead. The patient became responsive shortly after his first seizure, but then vomited at approximately 6:30 AM, and had a second seizure lasting approximately 1 minute around 6:50 AM. Both seizures were witnessed by patient's roommate. No tongue biting or loss of urinary continence, per parents. No prior history of status epilepticus. Patient is currently postictal and unable to provide a history/ROS. However, patient's parents do not believe he smokes or uses recreational medications; endorse occasional alcohol use. Patient's father is allergic to Zofran (breaks out in hives), and while they are unsure if the patient has ever had Zofran in the past, they would prefer to avoid this medication while he is hospitalized. Patient is hypertensive at 156/86, and tachycardic at 126 bpm at time of admission. ED course: Keppra 2650 mg IV Lorazepam 2 mg IV Unable to obtain ROS given patient's current state; however, patient does endorse that he was feverish and vomiting the night prior. He is not able to recall this morning's events. Oriented to name//month, not location. Admission Exam Per Admitting Provider General: no acute distress; sedated; lethargic; non-toxic appearing; well- nourished; cooperative; 95% SpO2 on RA HEENT: Superficial rash/abrasion on the left upper forehead into the scalp; no scleral icterus; PERRLA; moist mucus membrane; unable to assess vision and hearing Neck: supple; no lymphadenopathy; trachea midline Skin: warm, dry without signs of tenting; no cyanosis; no rashes, bruising, lesions, or erythema noted CV: chest wall NTP; RR, tachycardic around 112 bpm; S1/S2 normal; no murmurs/rubs/gallops; pulses intact and symmetric at radial, DP, and PT Lungs: no acute respiratory distress; symmetrical chest wall expansion; clear breath sounds across all lung valle w/o adventitious sounds; no wheezing ABD: Soft, NTP; BS present; no rebound/guarding; no distention MSK: no tics or fasciculations; no edema noted in the LEs b/l, nonerythematous Neuro: Patient is oriented to name//month, but not location; sedated; responds to some commands such as wiggling toes; minimally responsive to q uestioning, and is unable to provide a reason for why he is currently in the hospital; flat mood and affect; unable to assess sensation Principal Diagnosis NYDIA Discharge Exam General: AAOX3, afebrile, NAD CV: RRR, no r/m/g Pulm: CTA bilaterally, normal respiratory effort, no resp distress GI: soft, nondistended, nontender Ext: no swelling of b/l LE or calf pain Discharge Data Allergies Allergy/AdvReac Type Severity Reaction Status Date / Time No Known Allergies Allergy Verified 02/21/24 09:38 Consultations 02/21/24 13:19 ED Decision to Admit Stat 02/21/24 14:30 Consult Neurology Routine Ordered Studies 02/21/24 08:25 CT head/brain wo con Stat Hospital Course (1) NYDIA (juvenile myoclonic epilepsy): (2) Generalized seizure: Plan Mr. Hernandez is a 18 y/o male with PMHx of NYDIA who was admitted due to x4 episodes of convulsions after he had experienced 1 night of N/V. NYDIA/ Generalized Convulsion (Chronic, stable) - Patient with history of NYDIA for which he took Keppra and Lamictal at home - Had been vomiting the night of his convulsions and so was not able to take his anti-seizure medications, raising the risk for breakthrough seizures. - Lamictal and Keppra levels still pending - am labs unremarkable and VSS - Currently doing well and no other episode of seizure activity reported - Will discharge today with Keppra 1000mg PO qam and 2000mg PO in the evening (same as home dose), as well as Depakote 500 mg po QHS - Continue Lower dose of Lamictal after discharge (200 mg PO bid) to wean off - Will f/u with his home neurologist in 1 week, who is aware of current episodes as family had contacted them through telehealth appointment earlier today N/V (Resolved) - Patient not currently feeling nauseous after single dose of Compazine and pepcid - Able to eat and drink well Will discharge today. Total Time Total Time Spent Total Time Spent (In Minutes): <30 Discharge Plan Discharge Items Patient Disposition: Home - Self-Care Reason For Visit: RECURRENT SEIZURES Discharge Diagnosis: NYDIA, Breakthrough Seizures Activity: Per Instructions section Non-emergency contact: Primary Care Provider and Neurologist Call non-emergency contact if: your symptoms worsen and your temperature is above 101 Follow-up/Referrals: [place] [Primary Care Provider] - Diet: Regular Addtl Attending Provider Instructions: You were admitted due to recurrent convulsions which w believe may have come as a consequence to not being able to take your medications after having nausea and subsequent vomiting. We gave you Keppra and Ativan in the Emergency Room which controlled your seizures. We also spoke with the Neurologists, and they had recommended you continue your current Keppra dose (1000mg by mouth in the morning and 2000mg by mouth in the evening). They also recommended we decrease your Lamictal dose to 200mg by mouth two times a day. Finally, they recommended you take Depakote 500mg by mouth every night at bedtime. Please follow up with your neurologist in 1 week for post-discharge evaluation a nd further discussions regarding your medications for your seizure disorder. A discharge summary will be sent to your primary care physician to ensure continuity of care. Please bring this discharge summary with you to your next office appointment so that your provider can review it at that time. Follow-up appointments: Make a follow-up appointment with your PCP within the next week. It is very important that you follow up with them shortly after discharge from the hospital. Keep all your follow-up appointments as already scheduled. If you cannot make an appointment, notify your provider. Medications: Your medication list has been reviewed and reconciled upon discharge to ensure accuracy and continuity of care. An updated list of all your medications is included with your hospital discharge paperwork. Please review this list closely, and make note of any changes. If you have any issues filling these prescriptions, please call [phone] and ask to leave a message for Dr. Tomas. Take your medications as instructed; do not skip a dose of your medicines. Make sure all of your doctors know every medicine you are taking (including [id number] medicines, vitamins, and supplements). Call your primary care provider before taking any new medicines (including over- the-counter medicines, vitamins, and supplements), because some of these may interact with your current medications, or may make your symptoms worse. Tell your primary care provider if you cannot afford your medications. CONTACT YOUR PRIMARY CARE PROVIDER if you experience any of the following: Worsening of symptoms Fever, chills, or fatigue Difficulty following your treatment plan, or difficulty taking medications CALL 911 OR GO TO THE EMERGENCY DEPARTMENT if you experience any of the follow ing: Sudden, severe abdominal pain or nausea/vomiting Severe chest pain, or chest pain that radiates (moves) to your jaw or arm Sudden, severe shortness of breath or difficulty breathing Thank you for allowing us to participate in your care! Pending Studies at Discharge: No Stand-Alone Forms: My [facility], Smoking Cessation Medications and DC Order Prescriptions: New divalproex [Depakote ER] 500 mg tablet extended release 24 hr 500 mg PO .qhs Qty: 30 0RF Continued lamotrigine [Lamictal] 100 mg Tablet 250 mg PO QAM levetiracetam [Keppra] 500 mg Tablet 1,000 mg PO QAM lamotrigine 150 mg tablet 300 mg PO QPM levetiracetam 500 mg tablet 1,500 mg PO QPM methylphenidate HCl 36 mg tablet extended release 24hr 36 mg PO DAILY Discharge Orders: Discharge Order (Routine); Ordered 02/22/24 Ordered By: Keerthi Tomas Admission Data Admit Date/Time: 02/21/24 14:20 Attending Provider: Jacinto Snell Admit Provider: David Gillespie Primary Care Provider: [facility] Other Providers: David Gillespie; Adolfo Ovalle Other Interventions: Discharge Summary Assessment (RN) Last Done: 02/22/24 13:35 Supervising Physician Co-Signing Physician Notes I personally examined the patient and verified all palacios points of history and exam, discussed case, and agree with decision making with Dr Tomas No new issues. No further seizures. Vitals noted, in general resting comfortably no distress. Breathing unlabored no accessory muscle use good effort. Skin shows no rashes no pallor or icterus. Otherwise as above. Breakthrough seizuresappreciate neurology assistance. Safe/stable for home. Fever either due to physiologic stress/exertion from the seizure, or due to the viral illness that precipitated the nausea and vomiting to begin with. Outpatient follow-up. Otherwise as above. Resident Activity Tracking Resident Involvement: Resident Care Provided Care Provided: Adult Hospital Medicine
[2024-02-22] MEDS: FAMOTIDINE 10 MG TABLET PO ONE (11:44)
--- NOTE | 2024-02-22 16:47 | Billing Data ---
Date of Service February 22, 2024 Coding Level of Care Code 05178 IN/OBS DISCH 30 MIN/LESS
[2024-02-24 09:16] LABS: 7-Aminoclonaz, Confirm NEGATIVE ng/mL (<25); Hydro-Alp Ur, GC/MS NEGATIVE ng/mL (<25); Hydroxyethylflurazepam, Conf NEGATIVE ng/mL (<50); Hydroxymidazolam Ur, GC/MS 134 ng/mL (<50); Hydroxytriazolam NEGATIVE ng/mL (<50); Lorazepam, Ur GC/MS 269 ng/mL (<50); Nordiazepam, Confirm NEGATIVE ng/mL (<50); Oxazepam Ur, GC/MS NEGATIVE ng/mL (<50); Temazepam, Confirm NEGATIVE ng/mL (<50)
[2024-02-24 18:38] LABS: Lamictal(Lamotrigine) 5.1 mcg/mL (2.5-15.0)
== END 2024-02-22 14:00 | disposition home or self-care (01) | DRG 101 ==
LOC: ED 08:00 → EDINP 14:20 → SUATTDRO 14:20 → 2E 17:07